=== PATIENT | female | born 1995 | race Caucasian/White ===

== ENCOUNTER 2018-07-03 15:08 | Emergency (ER) | payer MEDICAID, OTHER ==
[~2018-07-03] VITALS: Ht 157.5 cm; Wt 62.0 kg
[2018-07-03 15:17] VITALS: BP 109/64
[2018-07-03 16:05] LABS: BASOPHILS # (AUTO) 0.02 x10^3/uL (0-0.1); BASOPHILS % (AUTO) 0 % (0-1); EOSINOPHILS # (AUTO) 0.26 x10^3/uL (0-0.4); EOSINOPHILS % (AUTO) 5 % (1-7); LYMPHOCYTES # (AUTO) 1.42 x10^3/uL (1-3.4); LYMPHOCYTES % (AUTO) 25 % (22-44); MD NO; MEAN CORPUSCULAR HEMOGLOBIN 28.7 pg (27.0-34.8); MEAN CORPUSCULAR HGB CONC 33.9 g/dL (32.4-35.8); MEAN CORPUSCULAR VOLUME 84.5 fL (80-100); MONOCYTES % (AUTO) 9 % (2-9); NEUTROPHILS # (AUTO) 3.53 x10^3/uL (1.8-6.8); NEUTROPHILS % (AUTO) 62 % (42-75); PLATELET COUNT 231 x10^3/uL (130-400); RED BLOOD COUNT 4.57 x10^6/uL (3.82-5.3); RED CELL DISTRIBUTION WIDTH 14.4 % (9.6-15.2)
[2018-07-03 16:09] LABS: ALANINE AMINOTRANSFERASE 34 U/L (12-78); ALBUMIN 3.7 g/dL (3.4-5.0); ANION GAP 6 mmol/L (5-15); CHLORIDE 109 mmol/L (98-107); CREATININE 0.86 mg/dL (0.55-1.02)
[2018-07-03 16:12] LABS: ALKALINE PHOSPHATASE 128 U/L (45-117); BILIRUBIN,TOTAL 0.3 mg/dL (0.2-1.0)
== END 2018-07-03 22:00 | disposition left against medical advice (07) ==
LOC: ED 20:10
DX: R10.9 Unspecified abdominal pain (principal)
CPT/HCPCS: 36415; 80053; 83690; 85025; 99283

== ENCOUNTER 2019-01-24 06:44 | Emergency (ER) | payer SELFPAY ==
[~2019-01-24] VITALS: Ht 157.5 cm; Wt 59.6 kg
[2019-01-24 06:50] VITALS: BP 123/72
[2019-01-24] MEDS ORDERED: LIDOCAINE-MPF 1%, 5ML ONE ×3 (07:21→08:00)
--- NOTE | 2019-01-24 07:26 | NUR ---
PUT PATIENT ON GYNNIE GURNEY AND SET UP ROOM FOR PELVIC EXAM WITH I/D TRAY.
[2019-01-24] MEDS ORDERED: LIDOCAINE-MPF 1%, 5ML INFIL ONE (07:30)
[2019-01-24] MEDS ORDERED: CEFTRIAXONE 1,000 MG ONE (08:00)
[2019-01-24] MEDS ORDERED: CEFTRIAXONE 1,000 MG IM ONE (08:00)
--- NOTE | 2019-01-24 08:35 | NUR ---
WENT TO PATIENT'S ROOM TO DISCHARGE HER AND SHE WAS GONE. LOOKED FOR PATIENT IN [facility] AND AT [employer] BUT UNABLE TO FIND PATIENT. CALLED PHONE NUMBER ON FILE. MALE ANSWERED AND STATED THAT THEY WILL COME BACK TO SURVEY STATISTICIAN DISCHARGE PAPERWORK WITH PRESCRIPTIONS.
== END 2019-01-24 08:37 | disposition home or self-care (01) ==
LOC: ED 08:00
DX: N76.2 Acute vulvitis (principal); N76.4 Abscess of vulva
CPT/HCPCS: 56405; 96372; 99284; J0696